=== PATIENT | female | born 1935 | race Caucasian/White ===

== ENCOUNTER 2022-07-18 20:29 | Inpatient (IN) | payer MEDICARE ==
[~2022-07-18] VITALS: Ht 152.4 cm; Wt 53.1 kg
[2022-07-18] MEDS ORDERED: SODIUM CHLORIDE 0.9% 1000ML BAG (SEPSIS BOLUS) IV ONE (21:15)
[2022-07-18 22:29] LABS: BASOPHILS % 0.6 % (0.0-2.0); EOSINOPHILS % 1.6 % (0.0-5.0); LYMPHOCYTES % 19.7 % (20.0-50.0); MEAN CORPUSCULAR HEMOGLOBIN 29.1 pg (28.0-32.0); MEAN CORPUSCULAR VOLUME 87.1 fL (81.0-99.0); MEAN PLATELET VOLUME 10.5 fl (7.4-10.4); NEUTROPHILS % 71.1 % (40.0-76.0); PLATELET 184 x1000/uL (130-400); RED BLOOD CELL COUNT 3.45 mill/uL (4.2-5.4); RED CELL DISTRIBUTION WIDTH 15.1 % (11.6-14.6)
[2022-07-18 22:39] LABS: CHLORIDE 108 mEq/L (98-107)
[2022-07-18] MEDS ORDERED: AZITHROMYCIN 500MG/250ML 250 ML IV ONE (23:15)
[2022-07-18] MEDS ORDERED: CEFTRIAXONE 1 G PREMIX 50 ML IV ONE (23:15)
[2022-07-18] MEDS ORDERED: ASPIRIN 81MG EC TABLET PO ONE (23:15)
[2022-07-19] VITALS (7 sets, daily range): BP systolic 133–193; BP diastolic 54–83
[2022-07-19 01:53] LABS: CLARITY URINE CLEAR (CLEAR); COLOR URINE YELLOW (YELLOW); KETONES URINE NEGATIVE (NEGATIVE); LEUKOCYTE ESTERASE URINE TRACE (NEGATIVE); NITRITE URINE NEGATIVE (NEGATIVE); OCCULT BLOOD URINE NEGATIVE (NEGATIVE); PH URINE 5.5 (4.5-8.0); PROTEIN URINE NEGATIVE (NEGATIVE); SPECIFIC GRAVITY URINE 1.014 (1.005-1.030); UROBILINOGEN URINE 0.2 E.U./dL (0.2-1.0)
[2022-07-19] MEDS ORDERED: DICY10CA88 MT (05:44)
[2022-07-19] MEDS ORDERED: HYDR-4134 PO (05:44)
[2022-07-19] MEDS ORDERED: MIRT-89 MT (05:44)
[2022-07-19] MEDS ORDERED: LOSA100T32 PO (05:44)
[2022-07-19] MEDS ORDERED: ESCI20TA37 MT (05:45)
[2022-07-19] MEDS ORDERED: PROT40 PO (05:45)
[2022-07-19] MEDS ORDERED: GUAIFENESIN 200MG/10ML SUGAR FREE UDC PO PRN (05:45)
[2022-07-19] MEDS ORDERED: ROSU5TAB PO (05:45)
[2022-07-19] MEDS ORDERED: POLY17PO3 MT (05:45)
[2022-07-19] MEDS ORDERED: METH1TAB33 PO (05:45)
[2022-07-19] MEDS ORDERED: DOCU-150 MT (05:45)
[2022-07-19] MEDS ORDERED: DIXL5 MT (05:45)
[2022-07-19] MEDS ORDERED: NITR0.4T49 SL (05:45)
[2022-07-19] MEDS ORDERED: ACETAMINOPHEN 325MG TABLET PO PRN (05:45)
[2022-07-19] MEDS ORDERED: ASPI-1497 MT (05:45)
[2022-07-19] MEDS ORDERED: BISA10SU62 RC (05:45)
[2022-07-19] MEDS ORDERED: PYR200 PO (05:45)
[2022-07-19] MEDS ORDERED: LEVO1CAP MT (05:45)
[2022-07-19] MEDS ORDERED: TRAMADOL 50MG TABLET PO PRN (05:45)
[2022-07-19] MEDS ORDERED: CLOP-31 PO (05:45)
[2022-07-19] MEDS ORDERED: CARV3.1242 MT (05:45)
[2022-07-19] MEDS ORDERED: MAGNESIUM/ALUMINUM HYDROXIDE/SIMETHICONE 30ML UDC PO PRN (05:45)
[2022-07-19] MEDS ORDERED: ONDA4TAB50 MT (05:45)
[2022-07-19] MEDS ORDERED: TOPUD MT (05:45)
[2022-07-19] MEDS ORDERED: ONDANSETRON HCL 4MG/2ML INJ IV PRN (05:45)
[2022-07-19] MEDS ORDERED: LORA-249 PO (05:45)
[2022-07-19] MEDS ORDERED: DOCUSATE SODIUM 100MG CAPSULE PO PRN (05:45)
[2022-07-19] MEDS: CLONIDINE 0.1MG TABLET PO PRN ×2 (06:40→17:22)
[2022-07-19] MEDS: ENOXAPARIN 30MG/0.3ML SYR SUBCUT SCH (09:11)
[2022-07-19] MEDS ORDERED: DICYCLOMINE HCL 10MG CAPSULE PO PRN (10:00)
[2022-07-19] MEDS ORDERED: LORAZEPAM 0.5MG TABLET PO PRN (10:00)
[2022-07-19] MEDS ORDERED: HYDRALAZINE HCL 25MG TABLET PO PRN (10:00)
[2022-07-19] MEDS ORDERED: NALOXONE HCL 0.4MG/ML VIAL IV PRN (10:30)
[2022-07-19] MEDS: CITALOPRAM HYDROBROMIDE 10MG TABLET PO SCH (11:02)
[2022-07-19] MEDS: LOSARTAN POTASSIUM 25 MG TABLET PO SCH (11:03)
[2022-07-19] MEDS: CARVEDILOL 3.125 MG TABLET PO SCH ×2 (11:03→21:05)
[2022-07-19] MEDS: CLOPIDOGREL 75MG TABLET PO SCH (11:04)
[2022-07-19] MEDS: PANTOPRAZOLE 40MG DR TABLET PO SCH ×2 (11:04→21:05)
[2022-07-19] MEDS: OXYBUTYNIN CHLORIDE 5MG TABLET PO SCH (11:04)
[2022-07-19] MEDS: BISACODYL 10MG SUPP RC SCH (11:04)
[2022-07-19] MEDS: ASPIRIN 81MG EC TABLET PO SCH (11:04)
[2022-07-19] MEDS: MIRTAZAPINE 15MG TABLET PO SCH (21:05)
[2022-07-20] VITALS (7 sets, daily range): BP systolic 116–184; BP diastolic 69–95
[2022-07-20 07:12] LABS: BASOPHILS % 1.2 % (0.0-2.0); EOSINOPHILS % 4.6 % (0.0-5.0); HEMATOCRIT. 31.7 % (36.0-48.0); HEMOGLOBIN. 10.7 g/dL (12.0-16.0); LYMPHOCYTES % 38.9 % (20.0-50.0); MEAN CORPUSCULAR HEMOGLOBIN 29.2 pg (28.0-32.0); MEAN CORPUSCULAR VOLUME 86.5 fL (81.0-99.0); MEAN PLATELET VOLUME 10.5 fl (7.4-10.4); MONOCYTES % 9.1 % (2.0-8.0); NEUTROPHILS % 46.2 % (40.0-76.0); PLATELET 193 x1000/uL (130-400); RED BLOOD CELL COUNT 3.66 mill/uL (4.2-5.4); RED CELL DISTRIBUTION WIDTH 14.9 % (11.6-14.6)
[2022-07-20] MEDS: OXYBUTYNIN CHLORIDE 5MG TABLET PO SCH (08:48)
[2022-07-20] MEDS: LOSARTAN POTASSIUM 25 MG TABLET PO SCH (08:48)
[2022-07-20] MEDS: CARVEDILOL 3.125 MG TABLET PO SCH ×2 (08:49→20:57)
[2022-07-20] MEDS: PANTOPRAZOLE 40MG DR TABLET PO SCH ×2 (08:51→20:57)
[2022-07-20] MEDS: BISACODYL 10MG SUPP RC SCH (08:52)
[2022-07-20] MEDS: CITALOPRAM HYDROBROMIDE 10MG TABLET PO SCH (08:52)
[2022-07-20] MEDS: CLOPIDOGREL 75MG TABLET PO SCH (08:52)
[2022-07-20] MEDS: ASPIRIN 81MG EC TABLET PO SCH (08:52)
[2022-07-20] MEDS: ENOXAPARIN 30MG/0.3ML SYR SUBCUT SCH (08:53)
[2022-07-20 11:37] LABS: CHLORIDE 109 mEq/L (98-107)
[2022-07-20 12:01] LABS: T4 FREE 1.17 ng/dL (0.76-1.46)
[2022-07-20 12:44] LABS: HDL CHOLESTEROL 77 mg/dL (40-59); LDL CHOLESTEROL 54 mg/dL (5-100)
[2022-07-20] MEDS ORDERED: POTASSIUM CHLORIDE 20MEQ TABLET SR PO NR (13:30)
[2022-07-20] MEDS: MIRTAZAPINE 15MG TABLET PO SCH (20:57)
[2022-07-21] VITALS: BP 148/60
[2022-07-21 04:00] VITALS: BP 150/89
[2022-07-21 08:00] VITALS: BP 138/93
[2022-07-21] MEDS: BISACODYL 10MG SUPP RC SCH (09:00)
[2022-07-21] MEDS: PANTOPRAZOLE 40MG DR TABLET PO SCH (09:33)
[2022-07-21] MEDS: ASPIRIN 81MG EC TABLET PO SCH (09:33)
[2022-07-21] MEDS: CITALOPRAM HYDROBROMIDE 10MG TABLET PO SCH (09:34)
[2022-07-21] MEDS: CARVEDILOL 3.125 MG TABLET PO SCH (09:34)
[2022-07-21] MEDS: ENOXAPARIN 30MG/0.3ML SYR SUBCUT SCH (09:34)
[2022-07-21] MEDS: OXYBUTYNIN CHLORIDE 5MG TABLET PO SCH (09:34)
[2022-07-21] MEDS: CLOPIDOGREL 75MG TABLET PO SCH (09:34)
[2022-07-21] MEDS: LOSARTAN POTASSIUM 25 MG TABLET PO SCH (09:40)
[2022-07-21 12:00] VITALS: BP 158/77
[2022-07-21 13:15] VITALS: BP 131/71
== END 2022-07-21 13:00 | DRG 74 ==
LOC: ER 20:29 → 8WST 07-19 00:56 → EDBEDREQDT 07-19 01:02 → EDBEDREQ 07-19 01:02 → EDBEDREQTM 07-19 01:02 → ENRESERV 07-19 03:30
PROVIDERS: ADMIT Hospitalist; ATTEND Hospitalist
DX: G90.8 Other disorders of autonomic nervous system (principal); E44.1 Mild protein-calorie malnutrition; E87.20 Acidosis, unspecified; I25.10 Atherosclerotic heart disease of native coronary artery without angina pectoris; D63.8 Anemia in other chronic diseases classified elsewhere; R79.89 Other specified abnormal findings of blood chemistry; I10 Essential (primary) hypertension; Z86.73 Personal history of transient ischemic attack (TIA), and cerebral infarction without residual deficits; Z88.2 Allergy status to sulfonamides; Z88.8 Allergy status to other drugs, medicaments and biological substances; I25.2 Old myocardial infarction; Z68.22 Body mass index [BMI] 22.0-22.9, adult
CPT/HCPCS: 36415; 71045; 80053; 80061; 81003; 83605; 84145; 84439; 84443; 84484; 85025; 93005; 93306; 93970; 99291; J0456; J0696; J1650; J7030